=== PATIENT | male | born 1985 | race Caucasian/White ===

== ENCOUNTER 2020-07-17 14:34 | Outpatient (CLI) | payer MEDICAID ==
--- NOTE | 2020-07-18 15:41 | General Progress Note ---
Subjective ROS Limited/Unobtainable: Yes Objective General Appearance: alert EENT: normal ENT inspection Neck: supple Cardiovascular: normal rate Respiratory/Chest: decreased breath sounds Abdomen: normal bowel sounds, non tender, soft Extremities: non-tender Assessment/Plan Assessment/Plan: abd pain obesity h/o adrenal adenoma s/p surg GERD ppi abd us RTC PRN Riky Teague MD Jul 18, 2020 15:41
== END 2020-07-17 16:34 | disposition home or self-care (01) ==
LOC: PAN 14:34
DX: R10.9 Unspecified abdominal pain (principal); E66.9 Obesity, unspecified; K21.9 Gastro-esophageal reflux disease without esophagitis